=== PATIENT | male | born 1990 | race American Indian/Alaskan Native ===

== ENCOUNTER 2016-11-26 14:14 | Emergency (ER) | payer MEDICAID, OTHER ==
[2016-11-26 14:28] VITALS: BP 103/84
[2016-11-26] MEDS ORDERED: Sodium Chloride 0.9% 10 ML Syringe FLUSH PRN (14:32)
[2016-11-26] MEDS ORDERED: Sodium Chloride 0.9% 1,000 ML IV ONE (14:50)
--- NOTE | 2016-11-26 15:05 | EDM.PDOC ---
ED HPI GENERAL MEDICAL PROBLEM - General Chief Complaint: Respiratory Problem Stated Complaint: SEVERE ABD PAINS, SOB, [id number] Time Seen by Provider: 11/26/16 14:55 Source of Information: Reports: Patient History Limitations: Reports: No Limitations - History of Present Illness INITIAL COMMENTS - FREE TEXT/NARRATIVE: This 26 yo male patient reports to the ED with a 1 week history of intermittent upper abdominal pain that has gotten worse over the past 2 days. The patient reports he has been taking some pain medications. Up to 1 week ago, the patient admits to taking pain medications every other day, but his last dose was about 4 days ago. The patient reports he does not know what he was taking, but he was getting them from his girlfriend. The patient has not been seen or attempted to be seen in the clinic for his current symptoms. Onset Date: 11/19/16 Duration: Getting Worse, Intermittent Location: Reports: Abdomen (upper abdomen) Quality: Reports: Ache, Sharp Severity: Moderate Improves with: Reports: Medication (pain medication (given to patient from his girlfriend)) Worsens with: Reports: None Associated Symptoms: Reports: Other Treatments [employer]: Reports: Other Medication(s) Left Upper Abdomen Pain Score (Numeric/FACES): 10 - Related Data Allergies Allergy/AdvReac Type Severity Reaction Status Date / Time No Known Allergies Allergy Verified 11/26/16 14:28 Home Meds: Home Meds . [No Known Home Meds] 11/26/16 [History] Past Medical History - Past Health History Medical/Surgical History: Denies Medical/Surgical History Social & Family History - Family History Family Medical History: Unobtainable ED ROS GENERAL - Review of Systems Review Of Systems: ROS reveals no pertinent complaints other than HPI. ED EXAM, GENERAL - Physical Exam Exam: See Below Exam Limited By: No Limitations General Appearance: Alert, WD/WN, Moderate Distress, Thin Eye Exam: Bilateral Eye: EOMI, Normal Inspection, PERRL Ears: Normal External Exam, Normal Canal, Hearing Grossly Normal, Normal TMs Nose: Normal Inspection, Normal Mucosa, No Blood Throat/Mouth: Normal Inspection, Normal Lips, Normal Teeth, Normal Gums, Normal Oropharynx, Normal Voice, No Airway Compromise Head: Atraumatic, Normocephalic Neck: Normal Inspection, Supple, Non-Tender, Full Range of Motion Respiratory/Chest: No Respiratory Distress, Lungs Clear, Normal Breath Sounds, No Accessory Muscle Use, Chest Non-Tender Cardiovascular: Normal Peripheral Pulses, Regular Rate, Rhythm, No Edema, No Gallop, No JVD, No Murmur, No Rub GI/Abdominal: Normal Bowel Sounds, Soft, No Organomegaly, No Distention, No Abnormal Bruit, No Mass, Pelvis Stable, Tender (epigastric) (Male) Exam: Deferred Rectal (Males) Exam: Deferred Back Exam: Normal Inspection, Full Range of Motion, NT Extremities: Normal Inspection, Normal Range of Motion, Non-Tender, Normal Capillary Refill, No Pedal Edema Neurological: Alert, Oriented, CN II-XII Intact, Normal Cognition, Normal Gait, Normal Reflexes, No Motor/Sensory Deficits Psychiatric: Anxious Skin Exam: Warm, Dry, Intact, Normal Color, No Rash Lymphatic: No Adenopathy Course - Vital Signs Last Recorded V/S: Last Vital Signs Temp 36.2 C 11/26/16 14:21 Pulse 89 11/26/16 14:21 Resp 20 11/26/16 14:21 BP 103/84 11/26/16 14:21 Pulse Ox 100 11/26/16 14:21 - Orders/Labs/Meds Orders: Active Orders 24 hr Category Date Time Status Sodium Chloride 0.9% [Saline Flush] Med 11/26/16 14:32 Active 10 ml FLUSH ASDIRECTED PRN Saline Lock Insert [OM.PC] Routine Oth 11/26/16 14:32 Ordered Medication Orders Sodium Chloride (Saline Flush) 10 ml FLUSH ASDIRECTED PRN PRN Reason: Keep Vein Open Last Admin: 11/26/16 14:56 Dose: 10 ml Labs: Laboratory Tests 11/26/16 11/26/16 11/26/16 Range/Units 14:52 14:52 14:52 WBC 8.9 (5.0-10.0) 10^3/uL RBC 5.25 (4.6-6.2) 10^6/uL Hgb 15.4 (14.0-18.0) g/dL Hct 45.6 (40.0-54.0) % MCV 86.9 (80-100) fL MCH 29.3 (27.0-34.0) pg MCHC 33.8 (33.0-35.0) g/dL Plt Count 340 (150-450) 10^3/uL Neut % (Auto) 57.3 (42.2-75.2) % Lymph % (Auto) 31.7 (20.5-50.1) % Barber % (Auto) 9.1 H (2-8) % Eos % (Auto) 1.6 (1.0-3.0) % Baso % (Auto) 0.3 (0.0-1.0) % Sodium 142 (135-145) mmol/L Potassium 5.0 (3.6-5.0) mmol/L Chloride 104 (101-111) mmol/L Carbon Dioxide 28.0 (21.0-31.0) mmol/L Anion Gap 15.0 BUN 16 (7-18) mg/dL Creatinine 0.9 (0.6-1.3) mg/dL Est Cr Clr Drug Dosing 127.30 mL/min Estimated GFR (MDRD) > 60 BUN/Creatinine Ratio 17.77 Glucose 85 (74-105) mg/dL Calcium 9.9 (8.4-10.2) mg/dl Magnesium 2.2 (1.8-2.5) mg/dL Total Bilirubin 1.0 (0.2-1.0) mg/dL AST 21 (10-42) IU/L ALT 23 (10-60) IU/L Alkaline Phosphatase 71 (42-121) IU/L Total Protein 7.4 (6.7-8.2) g/dl Albumin 4.5 (3.2-5.5) g/dl Globulin 2.9 Albumin/Globulin Ratio 1.55 Amylase 41 (28-100) U/L Lipase 23 (22-51) U/L Urine Color (YELLOW) Urine Appearance (CLEAR) Urine pH (5.0-9.0) Ur Specific Normal (1.005-1.030) Urine Protein (NEGATIVE) Urine Glucose (UA) (NEGATIVE) Urine Ketones (NEGATIVE) Urine Occult Blood (NEGATIVE) Urine Nitrite (NEGATIVE) Urine Bilirubin (NEGATIVE) Urine Urobilinogen (0.2-1.0) mg/dL Ur Leukocyte Esterase (NEGATIVE) Urine RBC /HPF Urine WBC (0-5/HPF) /HPF Ur Epithelial Cells /HPF Amorphous Sediment (0/HPF) /HPF Urine Bacteria (0-FEW/HPF) /HPF Urine Mucus /LPF Urine Opiates Screen (NEGATIVE) Ur Oxycodone Screen (NEGATIVE) Urine Methadone Screen (NEGATIVE) Ur Barbiturates Screen (NEGATIVE) U Tricyclic Antidepress (NEGATIVE) Ur Phencyclidine Scrn (NEGATIVE) Ur Amphetamine Screen (NEGATIVE) U Methamphetamines Scrn (NEGATIVE) Urine MDMA Screen (NEGATIVE) U Benzodiazepines Scrn (NEGATIVE) Urine Cocaine Screen (NEGATIVE) U Marijuana (THC) Screen (NEGATIVE) Ethyl Alcohol < 5 mg/dL 11/26/16 11/26/16 Range/Units 15:35 15:35 WBC (5.0-10.0) 10^3/uL RBC (4.6-6.2) 10^6/uL Hgb (14.0-18.0) g/dL Hct (40.0-54.0) % MCV (80-100) fL MCH (27.0-34.0) pg MCHC (33.0-35.0) g/dL Plt Count (150-450) 10^3/uL Neut % (Auto) (42.2-75.2) % Lymph % (Auto) (20.5-50.1) % Barber % (Auto) (2-8) % Eos % (Auto) (1.0-3.0) % Baso % (Auto) (0.0-1.0) % Sodium (135-145) mmol/L Potassium (3.6-5.0) mmol/L Chloride (101-111) mmol/L Carbon Dioxide (21.0-31.0) mmol/L Anion Gap BUN (7-18) mg/dL Creatinine (0.6-1.3) mg/dL Est Cr Clr Drug Dosing mL/min Estimated GFR (MDRD) BUN/Creatinine Ratio Glucose (74-105) mg/dL Calcium (8.4-10.2) mg/dl Magnesium (1.8-2.5) mg/dL Total Bilirubin (0.2-1.0) mg/dL AST (10-42) IU/L ALT (10-60) IU/L Alkaline Phosphatase (42-121) IU/L Total Protein (6.7-8.2) g/dl Albumin (3.2-5.5) g/dl Globulin Albumin/Globulin Ratio Amylase (28-100) U/L Lipase (22-51) U/L Urine Color Yellow (YELLOW) Urine Appearance Turbid (CLEAR) Urine pH 7.0 (5.0-9.0) Ur Specific Normal 1.020 (1.005-1.030) Urine Protein Trace H (NEGATIVE) Urine Glucose (UA) Negative (NEGATIVE) Urine Ketones Trace H (NEGATIVE) Urine Occult Blood Negative (NEGATIVE) Urine Nitrite Negative (NEGATIVE) Urine Bilirubin Small H (NEGATIVE) Urine Urobilinogen 4.0 H (0.2-1.0) mg/dL Ur Leukocyte Esterase Negative (NEGATIVE) Urine RBC 0-5 /HPF Urine WBC 0-5 (0-5/HPF) /HPF Ur Epithelial Cells Few /HPF Amorphous Sediment Many (0/HPF) /HPF Urine Bacteria Moderate H (0-FEW/HPF) /HPF Urine Mucus Few H /LPF Urine Opiates Screen Negative (NEGATIVE) Ur Oxycodone Screen Positive H (NEGATIVE) Urine Methadone Screen Negative (NEGATIVE) Ur Barbiturates Screen Negative (NEGATIVE) U Tricyclic Antidepress Negative (NEGATIVE) Ur Phencyclidine Scrn Negative (NEGATIVE) Ur Amphetamine Screen Positive H (NEGATIVE) U Methamphetamines Scrn Positive H (NEGATIVE) Urine MDMA Screen Negative (NEGATIVE) U Benzodiazepines Scrn Negative (NEGATIVE) Urine Cocaine Screen Negative (NEGATIVE) U Marijuana (THC) Screen Positive H (NEGATIVE) Ethyl Alcohol mg/dL Meds: Medications Generic Name Dose Route Start Last Admin Trade Name Freq PRN Reason Stop Dose Admin Sodium Chloride 10 ml 11/26/16 14:32 11/26/16 14:56 Saline Flush FLUSH 10 ml ASDIRECTED PRN Administration Keep Vein Open Discontinued Medications Generic Name Dose Route Start Last Admin Trade Name Freq PRN Reason Stop Dose Admin Al Hydroxide/Mg Hydroxide 30 ml 11/26/16 15:55 Gi Cocktail PO 11/26/16 15:56 ONETIME ONE Sodium Chloride 1,000 mls @ 999 mls/hr 11/26/16 14:50 11/26/16 14:54 Normal Saline IV 11/26/16 15:50 999 mls/hr .BOLUS ONE Administration Pantoprazole Sodium 80 mg 11/26/16 15:55 Protonix Iv IVPUSH 11/26/16 15:56 .BOLUS ONE Departure - Departure Time of Disposition: 15:57 Disposition: Home, Self-Care 01 Condition: Fair Clinical Impression: Methamphetamine abuse, PUD (peptic ulcer disease) - Discharge Information Instructions: Peptic Ulcer, [id number], Stimulant Use Disorder- Methamphetamines, Finding Treatment for Addiction Forms: ED Department Discharge Care Plan Goals: The patient was advised of the examination and lab results during the visit. The patient was given IV fluids, IV Protonix and a GI cocktail while in the ED. The patient was discharged with a script for Omeprazole (20 mg) #20 to take 1 by mouth 2 times per day 30 minutes prior to eating. The patient should avoid methamphetamine use and avoid taking prescription medication not prescribed to him. If the patient has any additional symptoms or further concerns, the patient should follow-up with his primary care facility or return to the emergency department. - My Orders Last 24 Hours: My Active Orders 11/26/16 14:32 Sodium Chloride 0.9% [Saline Flush] 10 ml FLUSH ASDIRECTED PRN Saline Lock Insert [OM.PC] Routine - Assessment/Plan Last 24 Hours: My Active Orders 11/26/16 14:32 Sodium Chloride 0.9% [Saline Flush] 10 ml FLUSH ASDIRECTED PRN Saline Lock Insert [OM.PC] Routine
[2016-11-26 15:19] LABS: CHLORIDE,CL 104 mmol/L (101-111); SODIUM,NA 142 mmol/L (135-145)
[2016-11-26] MEDS ORDERED: GI Cocktail Oral Solution 30 ML PO ONE (15:55)
[2016-11-26] MEDS ORDERED: Pantoprazole 40 MG Vial IVPUSH ONE (15:55)
== END 2016-11-26 16:44 | disposition home or self-care (01) ==
LOC: DL.ED 14:14
DX: K27.9 Peptic ulcer, site unspecified, unspecified as acute or chronic, without hemorrhage or perforation (principal); F15.10 Other stimulant abuse, uncomplicated
CPT/HCPCS: 36415; 80053; 80305; 81001; 82150; 83690; 83735; 85025; 96361; 96374; 99284; A9270; C9113; G0480; J7030; J7050

== ENCOUNTER 2019-09-24 13:21 | Inpatient (IN) | payer MEDICAID, OTHER ==
[~2019-09-24 13:21] MED LIST: LORazepam 2 MG/ML SDV IVPUSH ONE
--- NOTE | 2019-09-24 13:40 | EDM.PDOC ---
ED HPI GENERAL MEDICAL PROBLEM - General Chief Complaint: Drug or Alcohol Abuse Stated Complaint: AMBULANCE Time Seen by Provider: 09/24/19 13:38 Source of Information: Reports: Patient, EMS, EMS Notes Reviewed, RN, RN Notes Reviewed History Limitations: Reports: No Limitations - History of Present Illness INITIAL COMMENTS - FREE TEXT/NARRATIVE: Patient presents to ER per [place] ambulance service with complaint of seizure. Patient states he has had seizures in the past, and did have a concussion in the past. Patient has dried blood around his mouth, and evidence of biting of the tongue. Patient denies any drug use to provider, admits to drinking alcohol frequently. Patient states he does not drink daily but drinks "enough" in a week. Patient states last drink was last evening. Patient denies any health problems. States he does want a cut back on his drinking significantly for his family. Onset: Today, Sudden - Related Data Allergies Allergy/AdvReac Type Severity Reaction Status Date / Time No Known Allergies Allergy Verified 09/24/19 13:30 Home Meds: Home Meds . [No Known Home Meds] 11/26/16 [History] CIWAA - CIWAA CIWAA Nausea And Vomitin - No Nausea and No Vomiting CIWAA Tremor: 2 CIWAA Paroxysmal Sweats: 1 - Barely Perceptible Sweating, Palms Moist CIWAA Anxiety: 4 - Moderately Anxious, or Guarded, so Anxiety is Inferred CIWAA Agitation: 1 -Somewhat More than Normal Activity CIWAA Tactile Disturbances: 1 - Very Mild Itching, Pins and [place], Burning or Numbness CIWAA Auditory Disturbances: 0 - Not Present CIWAA Visual Disturbances: 0 - Not Present CIWAA Headache, Fullness in Head: 1 - Very Mild CIWAA Orientation And Clouding Of Sensorium: 1 - Cannot do Serial Additions or is Uncertain About Date CIWAA Scale Score: 11 Past Medical History - Past Health History Medical/Surgical History: Denies Medical/Surgical History Psychiatric History: Reports: Addiction, Anxiety Social & Family History - Family History Family Medical History: Unobtainable - Tobacco Use Smoking Status *Q: Current Some Day Smoker Years of Tobacco use: 2 Packs/Tins Daily: 0.5 - Caffeine Use Caffeine Use: Reports: Soda - Alcohol Use Days Per Week of Alcohol Use: 5 Number of Drinks Per Day: 5 Total Drinks Per Week: 25 - Recreational Drug Use Recreational Drug Use: Yes Drug Use in Last 12 Months: Yes Recreational Drug Type: Reports: Oxycodone Recreational Drug Use Frequency: Binges ED ROS GENERAL - Review of Systems Review Of Systems: Comprehensive ROS is negative, except as noted in HPI. - Physical Exam Exam: See Below General Appearance: Alert, WD/WN, Anxious, Mild Distress Eye Exam: Bilateral Eye: EOMI, Normal Inspection Ears: Normal External Exam, Hearing Grossly Normal Nose: Normal Inspection Throat/Mouth: Normal Voice, No Airway Compromise, Evidence of Tongue Biting, Other (dried blood around the mouth) Head Exam: Atraumatic, Normocephalic Neck: Normal Inspection, Supple, Non-Tender, Full Range of Motion Respiratory/Chest: No Respiratory Distress, Lungs Clear, Normal Breath Sounds, No Accessory Muscle Use, Chest Non-Tender Cardiovascular: Normal Peripheral Pulses, Regular Rate, Rhythm, No Edema, No Gallop, No JVD, No Murmur, No Rub GI/Abdominal: Normal Bowel Sounds, Soft, Non-Tender, No Organomegaly, No Distention, No Abnormal Bruit, No Mass, Pelvis Stable (Male) Exam: Deferred Rectal (Males) Exam: Deferred Neuro Exam (Abbreviated): Alert, Oriented, CN II-XII Intact, Normal Cognition, Normal Gait, No Motor/Sensory Deficits Back Exam: Normal Inspection, Full Range of Motion Extremities: Normal Inspection, Normal Range of Motion, Non-Tender, No Pedal Edema, Normal Capillary Refill Psychiatric: Normal Affect, Normal Mood, Anxious Skin Exam: Warm, Dry, Intact, Normal Color, No Rash Course - Vital Signs Last Recorded V/S: Last Vital Signs Temp 97.6 F 09/24/19 13:28 Pulse 115 H 09/24/19 13:28 Resp 18 09/24/19 13:28 BP 123/82 09/24/19 13:28 Pulse Ox 97 09/24/19 13:28 - Orders/Labs/Meds Orders: Active Orders 24 hr Category Date Time Status Admission Diagnosis [ADT] Stat ADT 09/24/19 15:56 Ordered Admission Status [Patient Status] [ADT] Routine ADT 09/24/19 15:56 Ordered Patient Status [ADT] Routine ADT 09/24/19 15:56 Ordered Cardiac Monitoring [RC] CONTINUOUS Care 09/24/19 15:57 Ordered Intake and Output [RC] QSHIFT Care 09/24/19 15:57 Ordered Oxygen Therapy [RC] PRN Care 09/24/19 15:56 Ordered Up With Assistance [RC] ASDIRECTED Care 09/24/19 15:56 Ordered VTE/DVT Education [RC] PER UNIT ROUTINE Care 09/24/19 15:56 Ordered Vital Signs [RC] Q4H Care 09/24/19 15:56 Ordered Regular Diet [DIET] Diet 09/24/19 Dinner Ordered CK W CKMB [CHEM] AM Lab 09/25/19 05:11 Ordered COMPREHENSIVE METABOLIC PN,CMP [CHEM] AM Lab 09/25/19 05:11 Ordered MAGNESIUM [CHEM] AM Lab 09/25/19 05:11 Ordered Labs: Laboratory Tests 09/24/19 09/24/19 09/24/19 Range/Units 13:22 13:22 13:23 WBC 6.2 (5.0-10.0) 10^3/uL RBC 5.33 (4.6-6.2) 10^6/uL Hgb 16.4 (14.0-18.0) g/dL Hct 48.1 (40.0-54.0) % MCV 90.2 D (80-100) fL MCH 30.8 (27.0-34.0) pg MCHC 34.1 (33.0-35.0) g/dL Plt Count 290 (150-450) 10^3/uL Neut % (Auto) 51.3 (42.2-75.2) % Lymph % (Auto) 34.5 (20.5-50.1) % [place] % (Auto) 12.3 H (2-8) % Eos % (Auto) 1.4 (1.0-3.0) % Baso % (Auto) 0.5 (0.0-1.0) % Sodium (136-145) mmol/L Potassium (3.5-5.1) mmol/L Chloride (98-107) mmol/L Carbon Dioxide (21-32) mmol/L Anion Gap (7-13) mEq/L BUN (7-18) mg/dL Creatinine (0.70-1.30) mg/dL Est Cr Clr Drug Dosing Estimated GFR (MDRD) BUN/Creatinine Ratio (No establ ref range) Glucose (74-99) mg/dL Calcium (8.5-10.1) mg/dL Total Bilirubin (0.2-1.0) mg/dL AST (15-37) U/L ALT (16-63) U/L Alkaline Phosphatase (46-116) U/L Total Protein (6.4-8.2) g/dL Albumin (3.4-5.0) g/dL Globulin Albumin/Globulin Ratio Urine Color Dark yellow (YELLOW) Urine Appearance Slightly cloudy (CLEAR) Urine pH 6.0 (5.0-9.0) Ur Specific [place] >= 1.030 (1.005-1.030) Urine Protein 30 H (NEGATIVE) Urine Glucose (UA) Negative (NEGATIVE) Urine Ketones Negative (NEGATIVE) Urine Occult Blood Trace-intact H (NEGATIVE) Urine Nitrite Negative (NEGATIVE) Urine Bilirubin Negative (NEGATIVE) Urine Urobilinogen 0.2 (0.2-1.0) mg/dL Ur Leukocyte Esterase Negative (NEGATIVE) Urine RBC 0-5 /HPF Urine WBC Not seen (0-5/HPF) /HPF Ur Epithelial Cells Few (NOT SEEN) /HPF Amorphous Sediment Moderate (NOT SEEN) /HPF Urine Bacteria Rare (0-FEW/HPF) /HPF Fine Granular Casts Moderate H (NOT SEEN) /LPF Urine Mucus Many H (NOT SEEN) /LPF Urine Opiates Screen Negative (NEGATIVE) Ur Oxycodone Screen Negative (NEGATIVE) Urine Methadone Screen Negative (NEGATIVE) Ur Barbiturates Screen Negative (NEGATIVE) U Tricyclic Antidepress Negative (NEGATIVE) Ur Phencyclidine Scrn Negative (NEGATIVE) Ur Amphetamine Screen Positive H (NEGATIVE) U Methamphetamines Scrn Positive H (NEGATIVE) Urine MDMA Screen Negative (NEGATIVE) U Benzodiazepines Scrn Negative (NEGATIVE) Urine Cocaine Screen Negative (NEGATIVE) U Marijuana (THC) Screen Positive H (NEGATIVE) Ethyl Alcohol (0) mg/dL 09/24/19 Range/Units 13:23 WBC (5.0-10.0) 10^3/uL RBC (4.6-6.2) 10^6/uL Hgb (14.0-18.0) g/dL Hct (40.0-54.0) % MCV (80-100) fL MCH (27.0-34.0) pg MCHC (33.0-35.0) g/dL Plt Count (150-450) 10^3/uL Neut % (Auto) (42.2-75.2) % Lymph % (Auto) (20.5-50.1) % [place] % (Auto) (2-8) % Eos % (Auto) (1.0-3.0) % Baso % (Auto) (0.0-1.0) % Sodium 141 (136-145) mmol/L Potassium 4.0 (3.5-5.1) mmol/L Chloride 102 (98-107) mmol/L Carbon Dioxide 21 (21-32) mmol/L Anion Gap 22.0 H (7-13) mEq/L BUN 21 H (7-18) mg/dL Creatinine 1.24 (0.70-1.30) mg/dL Est Cr Clr Drug Dosing TNP Estimated GFR (MDRD) > 60 BUN/Creatinine Ratio 16.9 (No establ ref range) Glucose 79 (74-99) mg/dL Calcium 8.6 (8.5-10.1) mg/dL Total Bilirubin 2.1 H (0.2-1.0) mg/dL AST 62 H (15-37) U/L ALT 51 (16-63) U/L Alkaline Phosphatase 87 (46-116) U/L Total Protein 7.6 (6.4-8.2) g/dL Albumin 4.3 (3.4-5.0) g/dL Globulin 3.3 Albumin/Globulin Ratio 1.3 Urine Color (YELLOW) Urine Appearance (CLEAR) Urine pH (5.0-9.0) Ur Specific [place] (1.005-1.030) Urine Protein (NEGATIVE) Urine Glucose (UA) (NEGATIVE) Urine Ketones (NEGATIVE) Urine Occult Blood (NEGATIVE) Urine Nitrite (NEGATIVE) Urine Bilirubin (NEGATIVE) Urine Urobilinogen (0.2-1.0) mg/dL Ur Leukocyte Esterase (NEGATIVE) Urine RBC /HPF Urine WBC (0-5/HPF) /HPF Ur Epithelial Cells (NOT SEEN) /HPF Amorphous Sediment (NOT SEEN) /HPF Urine Bacteria (0-FEW/HPF) /HPF Fine Granular Casts (NOT SEEN) /LPF Urine Mucus (NOT SEEN) /LPF Urine Opiates Screen (NEGATIVE) Ur Oxycodone Screen (NEGATIVE) Urine Methadone Screen (NEGATIVE) Ur Barbiturates Screen (NEGATIVE) U Tricyclic Antidepress (NEGATIVE) Ur Phencyclidine Scrn (NEGATIVE) Ur Amphetamine Screen (NEGATIVE) U Methamphetamines Scrn (NEGATIVE) Urine MDMA Screen (NEGATIVE) U Benzodiazepines Scrn (NEGATIVE) Urine Cocaine Screen (NEGATIVE) U Marijuana (THC) Screen (NEGATIVE) Ethyl Alcohol < 3 (0) mg/dL Meds: Medications Discontinued Medications Generic Name Dose Route Start Last Admin Trade Name Freq PRN Reason Stop Dose Admin Multivitamins/Minerals 10 ml/ 1,011.2 mls @ 999 mls/hr 09/24/19 13:56 09/24/19 14:13 Folic Acid 1 mg/ Thiamine HCl IV 09/24/19 14:56 999 mls/hr 100 mg/ Lactated Ringer's ONETIME ONE Administration Lorazepam 1 mg 09/24/19 13:14 09/24/19 13:35 Ativan IVPUSH 09/24/19 13:15 1 mg ONETIME ONE Administration - Radiology Interpretation Free Text/Narrative:: Head CT wo contrast: Sphenoid sinusitis. Emergency unenhanced CT scan head and brain otherwise ne gative. See rad report - Re-Assessments/Exams Free Text/Narrative Re-Assessment/Exam: 09/24/19 16:00 Discussed patient case with Dr. Alarcon who came to the ER to evaluate the patient. He agreed to accept the patient for inpatient admission. Departure - Departure Time of Disposition: 16:01 Disposition: Admitted As Inpatient 65 Condition: Fair Clinical Impression: Alcohol abuse, Drug abuse, Methamphetamine abuse, Seizure - Discharge Information *PRESCRIPTION DRUG MONITORING PROGRAM REVIEWED*: No *COPY OF PRESCRIPTION DRUG MONITORING REPORT IN PATIENT ARIANA: No Forms: ED Department Discharge Sepsis Event Note (ED) - Evaluation Sepsis Screening Result: No Definite Risk - Focused Exam Vital Signs: Vital Signs Temp Pulse Resp BP Pulse Ox 09/24/19 13:28 97.6 F 115 H 18 123/82 97 - My Orders Last 24 Hours: My Active Orders 09/24/19 15:56 Admission Diagnosis [ADT] Stat Admission Status [Patient Status] [ADT] Routine - Assessment/Plan Last 24 Hours: My Active Orders 09/24/19 15:56 Admission Diagnosis [ADT] Stat Admission Status [Patient Status] [ADT] Routine
[2019-09-24 13:48] LABS: CHLORIDE,CL 102 mmol/L (98-107); SODIUM,NA 141 mmol/L (136-145)
[2019-09-24] MEDS ORDERED: MVI, Adult with Vitamin K 10 ML, Folic Acid 1 MG, Thiamine 100 MG in Lactated Ringers 1... IV ONE ×4 (13:56)
--- NOTE | 2019-09-24 14:43 | CT ---
EXAMINATION: Head wo Cont SEX: Male AGE: 29 years CLINICAL HISTORY: 29-year-old male in the emergency department with SEIZURE. No comparison exams immediately available. Scan technique: Volume acquisition of data from the head and brain obtained on emergency basis without IV contrast while patient was lying supine on the Siemens multislice scanner [place], [place]. All data archived in the PACS system for storage, reformatting axial/sagittal/coronal planes and study (bone/brain windows). Interpretation: 1. Fluid-filled sphenoid sinus (on the left) with air-fluid level suggesting acute sinusitis. Symmetric clear pneumatization of the other paranasal and both mastoid sinuses. No foreign bodies. Midline septum. 2. Uniformly thick bony calvarium without sign of skull fracture, underlying brain contusion or epidural/subdural hematoma. 3. No supratentorial or posterior fossa mass lesion. No hydrocephalus. 4. No ischemic infarcts or signs of encephalomalacia. (Mild atrophy) 5. No sign of acute intracerebral/intraventricular/subarachnoid bleed. CONCLUSION: Sphenoid sinusitis. Emergency unenhanced CT scan head and brain otherwise negative.
[2019-09-24] MEDS ORDERED: LORazepam 2 MG/ML SDV IVPUSH PRN ×2 (15:56→16:10)
[2019-09-24] MEDS ORDERED: LORazepam 1 MG Tab PO PRN (16:12)
--- NOTE | 2019-09-24 16:16 | PCM.HP ---
H&P History of Present Illness - General Date of Service: 09/24/19 Admit Problem/Dx: Admission Diagnosis/Problem Admission Diagnosis/Problem Seizure disorder Source of Information: Patient, EMS - History of Present Illness Initial Comments - Free Text/Narative: The patient is a poor historian. He is a 29-year-old man with medical history of anxiety disorder and illicit drug use. The patient is a chronic alcoholic also. He presented to the emergency room via EMS because of seizure. Apparently had a seizure at home and family called an ambulance. Patient is unable to describe the seizure. Was noted to be confused at presentation. Denies having headache or blurring of vision. No focal weakness of any of the extremities at this point - Related Data Allergies/Adverse Reactions: Allergies Allergy/AdvReac Type Severity Reaction Status Date / Time No Known Allergies Allergy Verified 09/24/19 13:30 Home Medications: Home Meds . [No Known Home Meds] 11/26/16 [History] Past Medical History - Past Health History Medical/Surgical History: Denies Medical/Surgical History Psychiatric History: Reports: Addiction, Anxiety Social & Family History - Family History Family Medical History: Unobtainable - Tobacco Use Smoking Status *Q: Current Some Day Smoker Years of Tobacco use: 2 Packs/Tins Daily: 0.5 - Caffeine Use Caffeine Use: Reports: Soda - Alcohol Use Days Per Week of Alcohol Use: 5 Number of Drinks Per Day: 5 Total Drinks Per Week: 25 - Recreational Drug Use Recreational Drug Use: Yes Drug Use in Last 12 Months: Yes Recreational Drug Type: Reports: Oxycodone Recreational Drug Use Frequency: Binges H&P Review of Systems - Review of Systems: Review Of Systems: See Below General: Reports: Malaise, Weakness HEENT: Reports: No Symptoms Pulmonary: Reports: No Symptoms Cardiovascular: Reports: No Symptoms Gastrointestinal: Reports: No Symptoms Musculoskeletal: Reports: No Symptoms Skin: Reports: No Symptoms Neurological: Reports: Seizure Exam - Exam Exam: See Below - Vital Signs Vital Signs: Last Vital Signs Temp 36.4 C 09/24/19 13:28 Pulse 115 H 09/24/19 13:28 Resp 18 09/24/19 13:28 BP 123/82 09/24/19 13:28 Pulse Ox 97 09/24/19 13:28 Weight: 73.527 kg - Exam General: Alert, Oriented, Other (Mild intermittent confusion) Neck: Supple, Trachea Midline, 2 Lungs: Clear to Auscultation, Normal Respiratory Effort Cardiovascular: Regular Rate, Regular Rhythm (Male) Exam: No Hernia, Normal Inspection, Normal Prostate, Circumcised Extremities: Normal Inspection, Normal Range of Motion, Non-Tender, No Pedal Edema, Normal Capillary Refill Skin: Warm, Dry, Intact - Patient Data Lab Results Last 24 hrs: Laboratory Results - last 24 hr 09/24/19 09/24/19 09/24/19 Range/Units 13:22 13:22 13:23 WBC 6.2 (5.0-10.0) 10^3/uL RBC 5.33 (4.6-6.2) 10^6/uL Hgb 16.4 (14.0-18.0) g/dL Hct 48.1 (40.0-54.0) % MCV 90.2 D (80-100) fL MCH 30.8 (27.0-34.0) pg MCHC 34.1 (33.0-35.0) g/dL Plt Count 290 (150-450) 10^3/uL Neut % (Auto) 51.3 (42.2-75.2) % Lymph % (Auto) 34.5 (20.5-50.1) % [place] % (Auto) 12.3 H (2-8) % Eos % (Auto) 1.4 (1.0-3.0) % Baso % (Auto) 0.5 (0.0-1.0) % Sodium (136-145) mmol/L Potassium (3.5-5.1) mmol/L Chloride (98-107) mmol/L Carbon Dioxide (21-32) mmol/L Anion Gap (7-13) mEq/L BUN (7-18) mg/dL Creatinine (0.70-1.30) mg/dL Est Cr Clr Drug Dosing Estimated GFR (MDRD) BUN/Creatinine Ratio (No establ ref range) Glucose (74-99) mg/dL Calcium (8.5-10.1) mg/dL Total Bilirubin (0.2-1.0) mg/dL AST (15-37) U/L ALT (16-63) U/L Alkaline Phosphatase (46-116) U/L Total Protein (6.4-8.2) g/dL Albumin (3.4-5.0) g/dL Globulin Albumin/Globulin Ratio Urine Color Dark yellow (YELLOW) Urine Appearance Slightly cloudy (CLEAR) Urine pH 6.0 (5.0-9.0) Ur Specific [place] >= 1.030 (1.005-1.030) Urine Protein 30 H (NEGATIVE) Urine Glucose (UA) Negative (NEGATIVE) Urine Ketones Negative (NEGATIVE) Urine Occult Blood Trace-intact H (NEGATIVE) Urine Nitrite Negative (NEGATIVE) Urine Bilirubin Negative (NEGATIVE) Urine Urobilinogen 0.2 (0.2-1.0) mg/dL Ur Leukocyte Esterase Negative (NEGATIVE) Urine RBC 0-5 /HPF Urine WBC Not seen (0-5/HPF) /HPF Ur Epithelial Cells Few (NOT SEEN) /HPF Amorphous Sediment Moderate (NOT SEEN) /HPF Urine Bacteria Rare (0-FEW/HPF) /HPF Fine Granular Casts Moderate H (NOT SEEN) /LPF Urine Mucus Many H (NOT SEEN) /LPF Urine Opiates Screen Negative (NEGATIVE) Ur Oxycodone Screen Negative (NEGATIVE) Urine Methadone Screen Negative (NEGATIVE) Ur Barbiturates Screen Negative (NEGATIVE) U Tricyclic Antidepress Negative (NEGATIVE) Ur Phencyclidine Scrn Negative (NEGATIVE) Ur Amphetamine Screen Positive H (NEGATIVE) U Methamphetamines Scrn Positive H (NEGATIVE) Urine MDMA Screen Negative (NEGATIVE) U Benzodiazepines Scrn Negative (NEGATIVE) Urine Cocaine Screen Negative (NEGATIVE) U Marijuana (THC) Screen Positive H (NEGATIVE) Ethyl Alcohol (0) mg/dL 09/23/ Range/Units 13:23 WBC (5.0-10.0) 10^3/uL RBC (4.6-6.2) 10^6/uL Hgb (14.0-18.0) g/dL Hct (40.0-54.0) % MCV (80-100) fL MCH (27.0-34.0) pg MCHC (33.0-35.0) g/dL Plt Count (150-450) 10^3/uL Neut % (Auto) (42.2-75.2) % Lymph % (Auto) (20.5-50.1) % [place] % (Auto) (2-8) % Eos % (Auto) (1.0-3.0) % Baso % (Auto) (0.0-1.0) % Sodium 141 (136-145) mmol/L Potassium 4.0 (3.5-5.1) mmol/L Chloride 102 (98-107) mmol/L Carbon Dioxide 21 (21-32) mmol/L Anion Gap 22.0 H (7-13) mEq/L BUN 21 H (7-18) mg/dL Creatinine 1.24 (0.70-1.30) mg/dL Est Cr Clr Drug Dosing TNP Estimated GFR (MDRD) > 60 BUN/Creatinine Ratio 16.9 (No establ ref range) Glucose 79 (74-99) mg/dL Calcium 8.6 (8.5-10.1) mg/dL Total Bilirubin 2.1 H (0.2-1.0) mg/dL AST 62 H (15-37) U/L ALT 51 (16-63) U/L Alkaline Phosphatase 87 (46-116) U/L Total Protein 7.6 (6.4-8.2) g/dL Albumin 4.3 (3.4-5.0) g/dL Globulin 3.3 Albumin/Globulin Ratio 1.3 Urine Color (YELLOW) Urine Appearance (CLEAR) Urine pH (5.0-9.0) Ur Specific [place] (1.005-1.030) Urine Protein (NEGATIVE) Urine Glucose (UA) (NEGATIVE) Urine Ketones (NEGATIVE) Urine Occult Blood (NEGATIVE) Urine Nitrite (NEGATIVE) Urine Bilirubin (NEGATIVE) Urine Urobilinogen (0.2-1.0) mg/dL Ur Leukocyte Esterase (NEGATIVE) Urine RBC /HPF Urine WBC (0-5/HPF) /HPF Ur Epithelial Cells (NOT SEEN) /HPF Amorphous Sediment (NOT SEEN) /HPF Urine Bacteria (0-FEW/HPF) /HPF Fine Granular Casts (NOT SEEN) /LPF Urine Mucus (NOT SEEN) /LPF Urine Opiates Screen (NEGATIVE) Ur Oxycodone Screen (NEGATIVE) Urine Methadone Screen (NEGATIVE) Ur Barbiturates Screen (NEGATIVE) U Tricyclic Antidepress (NEGATIVE) Ur Phencyclidine Scrn (NEGATIVE) Ur Amphetamine Screen (NEGATIVE) U Methamphetamines Scrn (NEGATIVE) Urine MDMA Screen (NEGATIVE) U Benzodiazepines Scrn (NEGATIVE) Urine Cocaine Screen (NEGATIVE) U Marijuana (THC) Screen (NEGATIVE) Ethyl Alcohol < 3 (0) mg/dL Result Diagrams: 09/24/19 13:23 09/24/19 13:23 Problem List Initiated/Reviewed/Updated: Yes Orders Last 24hrs: Active Orders 24 hr Category Date Time Status Admission Diagnosis [ADT] Stat ADT 09/24/19 15:56 Ordered Admission Status [Patient Status] [ADT] Routine ADT 09/24/19 15:56 Active Patient Status [ADT] Routine ADT 09/24/19 15:56 Active Cardiac Monitoring [RC] CONTINUOUS Care 09/24/19 15:57 Active Intake and Output [RC] QSHIFT Care 09/24/19 15:57 Active Oxygen Therapy [RC] PRN Care 09/24/19 15:56 Active Up With Assistance [RC] ASDIRECTED Care 09/24/19 15:56 Active VTE/DVT Education [RC] PER UNIT ROUTINE Care 09/24/19 15:56 Active Vital Signs [RC] Q4H Care 09/24/19 15:56 Active Regular Diet [DIET] Diet 09/24/19 Dinner Active CK W CKMB [CHEM] AM Lab 09/25/19 05:11 Ordered COMPREHENSIVE METABOLIC PN,CMP [CHEM] AM Lab 09/25/19 05:11 Ordered MAGNESIUM [CHEM] AM Lab 09/25/19 05:11 Ordered PHOSPHORUS [CHEM] AM Lab 09/25/19 05:11 Ordered Acetaminophen [Tylenol] Med 09/24/19 15:56 Ordered 650 mg PO Q4H PRN Heparin Sodium Med 09/24/19 22:00 Ordered 5,000 units SUBCUT Q8HR LORazepam [Ativan] Med 09/24/19 15:56 Ordered 2 mg IVPUSH ONETIME PRN LORazepam [Ativan] Med 09/24/19 16:10 Ordered See Protocol IVPUSH TITRATE PRN LORazepam [Ativan] Med 09/24/19 16:12 Ordered See Protocol PO TITRATE PRN Nicotine [Habitrol] Med 09/25/19 09:00 Ordered 21 mg TRDERM DAILY Sodium Chloride 0.9% [Normal Saline] 1,000 ml Med 09/24/19 16:00 Ordered IV ASDIRECTED Resuscitation Status Routine Resus Stat 09/24/19 15:56 Ordered Medication Orders Acetaminophen (Tylenol) 650 mg PO Q4H PRN PRN Reason: Pain (Mild 1-3)/fever Heparin Sodium (Porcine) (Heparin Sodium) 5,000 units SUBCUT Q8HR [facility] Sodium Chloride (Normal Saline) 1,000 mls @ 125 mls/hr IV ASDIRECTED [facility] Lorazepam (Ativan) 2 mg IVPUSH ONETIME PRN PRN Reason: seizure Lorazepam (Ativan) 0 mg IVPUSH TITRATE PRN; Protocol PRN Reason: Withdrawal Symptoms Lorazepam (Ativan) 0 mg PO TITRATE PRN; Protocol PRN Reason: Withdrawal Symptoms Nicotine (Habitrol) 21 mg TRDERM DAILY [facility] Assessment/Plan Comment:: #. Seizure Patient apparently had a seizure at home Has no prior history of seizures. #. Anxiety disorder Not on any medication #. Substance use disorder Patient uses methamphetamine Urine toxicology screen is also positive for marijuana #. Liver disease Total bilirubin is elevated up to 2.1 Plan: Admit patient to medical floor Intravenous lorazepam for seizures Seizure precautions Alcohol withdrawal precautions Start patient on lorazepam protocol for alcohol withdrawal Send sample for serum CPK
[2019-09-24] MEDS: Sodium Chloride 0.9% 1,000 ML IV SCH (17:44)
[2019-09-24] MEDS: Heparin Sodium 5,000 Units/ML Vial SUBCUT SCH (21:55)
[2019-09-24] MEDS: Acetaminophen 325 MG Tab PO PRN (21:59)
[2019-09-25] MEDS: Sodium Chloride 0.9% 1,000 ML IV SCH ×3 (02:15→17:59)
[2019-09-25] MEDS: Heparin Sodium 5,000 Units/ML Vial SUBCUT SCH ×3 (05:59→21:30)
[2019-09-25 06:40] LABS: ANION GAP 11.7 mEq/L (7-13); CHLORIDE,CL 108 mmol/L (98-107); SODIUM,NA 143 mmol/L (136-145)
--- NOTE | 2019-09-25 09:14 | PCM.PN ---
- General Info Date of Service: 09/25/19 Subjective Update: Admitted with alcohol-related seizure No seizure overnight No new complaints today. No nausea and no vomiting. - Review of Systems General: Reports: Malaise HEENT: Reports: No Symptoms Pulmonary: Reports: No Symptoms Cardiovascular: Reports: No Symptoms Gastrointestinal: Reports: No Symptoms Musculoskeletal: Reports: No Symptoms - Patient Data Vitals - Most Recent: Last Vital Signs Temp 36.6 C 09/25/19 07:00 Pulse 75 09/25/19 07:00 Resp 18 09/25/19 07:00 BP 104/66 09/25/19 07:00 Pulse Ox 94 L 09/25/19 07:00 Weight - Most Recent: 73.527 kg I&O - Last 24 Hours: Intake & Output 09/24/19 09/25/19 09/25/19 22:59 06:59 14:59 Intake Total 200 2086 Output Total 625 Balance 200 1461 Lab Results Last 24 Hours: Laboratory Results - last 24 hr 09/24/19 09/24/19 09/24/19 Range/Units 13:22 13:22 13:23 WBC 6.2 (5.0-10.0) 10^3/uL RBC 5.33 (4.6-6.2) 10^6/uL Hgb 16.4 (14.0-18.0) g/dL Hct 48.1 (40.0-54.0) % MCV 90.2 D (80-100) fL MCH 30.8 (27.0-34.0) pg MCHC 34.1 (33.0-35.0) g/dL Plt Count 290 (150-450) 10^3/uL Neut % (Auto) 51.3 (42.2-75.2) % Lymph % (Auto) 34.5 (20.5-50.1) % [place] % (Auto) 12.3 H (2-8) % Eos % (Auto) 1.4 (1.0-3.0) % Baso % (Auto) 0.5 (0.0-1.0) % Sodium (136-145) mmol/L Potassium (3.5-5.1) mmol/L Chloride (98-107) mmol/L Carbon Dioxide (21-32) mmol/L Anion Gap (7-13) mEq/L BUN (7-18) mg/dL Creatinine (0.70-1.30) mg/dL Est Cr Clr Drug Dosing Estimated GFR (MDRD) BUN/Creatinine Ratio (No establ ref range) Glucose (74-99) mg/dL Calcium (8.5-10.1) mg/dL Phosphorus (2.6-4.7) mg/dL Magnesium (1.8-2.4) mg/dL Total Bilirubin (0.2-1.0) mg/dL AST (15-37) U/L ALT (16-63) U/L Alkaline Phosphatase (46-116) U/L Creatine Kinase (39-308) U/L Creatine Kinase Index (0-2.4) % CK-MB (CK-2) (0.0-3.6) ng/mL Total Protein (6.4-8.2) g/dL Albumin (3.4-5.0) g/dL Globulin Albumin/Globulin Ratio Urine Color Dark yellow (YELLOW) Urine Appearance Slightly cloudy (CLEAR) Urine pH 6.0 (5.0-9.0) Ur Specific [place] >= 1.030 (1.005-1.030) Urine Protein 30 H (NEGATIVE) Urine Glucose (UA) Negative (NEGATIVE) Urine Ketones Negative (NEGATIVE) Urine Occult Blood Trace-intact H (NEGATIVE) Urine Nitrite Negative (NEGATIVE) Urine Bilirubin Negative (NEGATIVE) Urine Urobilinogen 0.2 (0.2-1.0) mg/dL Ur Leukocyte Esterase Negative (NEGATIVE) Urine RBC 0-5 /HPF Urine WBC Not seen (0-5/HPF) /HPF Ur Epithelial Cells Few (NOT SEEN) /HPF Amorphous Sediment Moderate (NOT SEEN) /HPF Urine Bacteria Rare (0-FEW/HPF) /HPF Fine Granular Casts Moderate H (NOT SEEN) /LPF Urine Mucus Many H (NOT SEEN) /LPF Urine Opiates Screen Negative (NEGATIVE) Ur Oxycodone Screen Negative (NEGATIVE) Urine Methadone Screen Negative (NEGATIVE) Ur Barbiturates Screen Negative (NEGATIVE) U Tricyclic Antidepress Negative (NEGATIVE) Ur Phencyclidine Scrn Negative (NEGATIVE) Ur Amphetamine Screen Positive H (NEGATIVE) U Methamphetamines Scrn Positive H (NEGATIVE) Urine MDMA Screen Negative (NEGATIVE) U Benzodiazepines Scrn Negative (NEGATIVE) Urine Cocaine Screen Negative (NEGATIVE) U Marijuana (THC) Screen Positive H (NEGATIVE) Ethyl Alcohol (0) mg/dL 09/24/19 09/25/19 09/25/19 Range/Units 13:23 05:53 05:53 WBC (5.0-10.0) 10^3/uL RBC (4.6-6.2) 10^6/uL Hgb (14.0-18.0) g/dL Hct (40.0-54.0) % MCV (80-100) fL MCH (27.0-34.0) pg MCHC (33.0-35.0) g/dL Plt Count (150-450) 10^3/uL Neut % (Auto) (42.2-75.2) % Lymph % (Auto) (20.5-50.1) % [place] % (Auto) (2-8) % Eos % (Auto) (1.0-3.0) % Baso % (Auto) (0.0-1.0) % Sodium 141 143 (136-145) mmol/L Potassium 4.0 3.7 (3.5-5.1) mmol/L Chloride 102 108 H (98-107) mmol/L Carbon Dioxide 21 27 (21-32) mmol/L Anion Gap 22.0 H 11.7 (7-13) mEq/L BUN 21 H 18 (7-18) mg/dL Creatinine 1.24 0.93 (0.70-1.30) mg/dL Est Cr Clr Drug Dosing TNP 119.92 Estimated GFR (MDRD) > 60 > 60 BUN/Creatinine Ratio 16.9 19.4 (No establ ref range) Glucose 79 74 (74-99) mg/dL Calcium 8.6 7.7 L (8.5-10.1) mg/dL Phosphorus 4.0 (2.6-4.7) mg/dL Magnesium 2.1 (1.8-2.4) mg/dL Total Bilirubin 2.1 H 3.1 H (0.2-1.0) mg/dL AST 62 H 33 (15-37) U/L ALT 51 37 (16-63) U/L Alkaline Phosphatase 87 68 (46-116) U/L Creatine Kinase 501 H (39-308) U/L Creatine Kinase Index 0.8 (0-2.4) % CK-MB (CK-2) 4.0 H (0.0-3.6) ng/mL Total Protein 7.6 5.8 L (6.4-8.2) g/dL Albumin 4.3 3.3 L (3.4-5.0) g/dL Globulin 3.3 2.5 Albumin/Globulin Ratio 1.3 1.32 Urine Color (YELLOW) Urine Appearance (CLEAR) Urine pH (5.0-9.0) Ur Specific [place] (1.005-1.030) Urine Protein (NEGATIVE) Urine Glucose (UA) (NEGATIVE) Urine Ketones (NEGATIVE) Urine Occult Blood (NEGATIVE) Urine Nitrite (NEGATIVE) Urine Bilirubin (NEGATIVE) Urine Urobilinogen (0.2-1.0) mg/dL Ur Leukocyte Esterase (NEGATIVE) Urine RBC /HPF Urine WBC (0-5/HPF) /HPF Ur Epithelial Cells (NOT SEEN) /HPF Amorphous Sediment (NOT SEEN) /HPF Urine Bacteria (0-FEW/HPF) /HPF Fine Granular Casts (NOT SEEN) /LPF Urine Mucus (NOT SEEN) /LPF Urine Opiates Screen (NEGATIVE) Ur Oxycodone Screen (NEGATIVE) Urine Methadone Screen (NEGATIVE) Ur Barbiturates Screen (NEGATIVE) U Tricyclic Antidepress (NEGATIVE) Ur Phencyclidine Scrn (NEGATIVE) Ur Amphetamine Screen (NEGATIVE) U Methamphetamines Scrn (NEGATIVE) Urine MDMA Screen (NEGATIVE) U Benzodiazepines Scrn (NEGATIVE) Urine Cocaine Screen (NEGATIVE) U Marijuana (THC) Screen (NEGATIVE) Ethyl Alcohol < 3 (0) mg/dL Med Orders - Current: Current Medications Acetaminophen (Tylenol) 650 mg PO Q4H PRN PRN Reason: Pain (Mild 1-3)/fever Last Admin: 09/24/19 21:59 Dose: 650 mg Documented by: Heparin Sodium (Porcine) (Heparin Sodium) 5,000 units SUBCUT Q8HR [facility] Last Admin: 09/25/19 05:59 Dose: 5,000 units Documented by: Sodium Chloride (Normal Saline) 1,000 mls @ 125 mls/hr IV ASDIRECTED [facility] Last Admin: 09/25/19 02:15 Dose: 125 mls/hr Documented by: Lorazepam (Ativan) 2 mg IVPUSH ONETIME PRN PRN Reason: seizure Lorazepam (Ativan) 0 mg IVPUSH TITRATE PRN; Protocol PRN Reason: Withdrawal Symptoms Lorazepam (Ativan) 0 mg PO TITRATE PRN; Protocol PRN Reason: Withdrawal Symptoms Miscellaneous Information (Check Patch) 1 ea TRDERM BEDTIME [facility] Nicotine (Habitrol) 21 mg TRDERM DAILY [facility] Discontinued Medications Multivitamins/Minerals 10 ml/Folic Acid 1 mg/ Thiamine HCl 100 mg/ Lactated Ringer's 1,011.2 mls @ 999 mls/hr IV ONETIME ONE Stop: 09/24/19 14:56 Last Admin: 09/24/19 14:13 Dose: 999 mls/hr Documented by: Lorazepam (Ativan) 1 mg IVPUSH ONETIME ONE Stop: 09/24/19 13:15 Last Admin: 09/24/19 13:35 Dose: 1 mg Documented by: - Exam General: Alert, Oriented, Cooperative Neck: Supple Lungs: Clear to Auscultation, Normal Respiratory Effort Cardiovascular: Regular Rate, Regular Rhythm GI/Abdominal Exam: Normal Bowel Sounds, Soft, Non-Tender, No Organomegaly, No Distention, No Abnormal Bruit, No Mass, Pelvis Stable Extremities: Normal Inspection, Normal Range of Motion, Non-Tender, No Pedal Edema, Normal Capillary Refill Sepsis Event Note - Evaluation Sepsis Screening Result: No Definite Risk - Focused Exam Vital Signs: Vital Signs Temp Pulse Resp BP Pulse Ox 09/25/19 07:00 36.6 C 75 18 104/66 94 L 09/25/19 01:11 36.6 C 62 18 106/60 99 Date Exam was Performed: 09/25/19 Time Exam was Performed: 09:14 - Problem List Review Problem List Initiated/Reviewed/Updated: Yes - My Orders Last 24 Hours: My Active Orders 09/24/19 15:56 Patient Status [ADT] Routine Up With Assistance [RC] ASDIRECTED VTE/DVT Education [RC] PER UNIT ROUTINE Vital Signs [RC] 07,11,15,19,23,03 Acetaminophen [Tylenol] 650 mg PO Q4H PRN LORazepam [Ativan] 2 mg IVPUSH ONETIME PRN Resuscitation Status Routine 09/24/19 15:57 Cardiac Monitoring [RC] 08,20 Intake and Output [RC] QSHIFT 09/24/19 16:00 Sodium Chloride 0.9% [Normal Saline] 1,000 ml IV ASDIRECTED 06/22/20 16:10 LORazepam [Ativan] See Protocol IVPUSH TITRATE PRN 09/24/19 16:12 LORazepam [Ativan] See Protocol PO TITRATE PRN 09/24/19 Dinner Regular Diet [DIET] 09/24/19 22:00 Heparin Sodium 5,000 units SUBCUT Q8HR 09/25/19 09:00 Nicotine [Habitrol] 21 mg TRDERM DAILY 09/25/19 21:00 Check Patch 1 ea TRDERM BEDTIME - Plan Plan:: #. Seizure Likely alcohol related seizure Patient apparently had a seizure at home Has no prior history of seizures. No seizure since admission CT of the head negative Will monitor for another 24 hours #. Alcohol use disorder Monitor for withdrawals Benzodiazepines per [facility] protocol #. Anxiety disorder Lorazepam prn #. Substance use disorder Patient uses methamphetamine Urine toxicology screen is also positive for marijuana #. Liver disease Total bilirubin is elevated up to 2.1 Counseling
[2019-09-25] MEDS: Acetaminophen 325 MG Tab PO PRN ×3 (09:53→21:47)
[2019-09-25] MEDS: Nicotine 21 MG/24 Hr Patch TRDERM SCH (09:54)
[2019-09-25] MEDS ORDERED: CHECK TRDERM SCH (21:00)
[2019-09-26] MEDS: Sodium Chloride 0.9% 1,000 ML IV SCH (02:02)
[2019-09-26] MEDS: Heparin Sodium 5,000 Units/ML Vial SUBCUT SCH (06:13)
[2019-09-26 07:57] VITALS: BP 112/65; PULSE 66
[2019-09-26] MEDS: Acetaminophen 325 MG Tab PO PRN (08:04)
[2019-09-26] MEDS: Nicotine 21 MG/24 Hr Patch TRDERM SCH (08:04)
--- NOTE | 2019-09-26 09:48 | PCM.DCSUM1 ---
Discharge Summary - Hospital Course Free Text/Narrative:: Patient is a 29-year-old man with medical history of anxiety disorder and illicit drug use. The patient is a chronic alcoholic also. He presented to the emergency room via EMS because of seizure. He was admitted for alcohol withdrawal seizures. This is his first episode of alcohol related seizures. His stay was uncomplicated and did not had anymore surgery. He was discharged in stable condition. He was advised on the dangers of continue alcohol abuse and a dvised to quit. He verbalized understanding. He was also advised to follow up today at the [facility] after discharged. He agreed to go to the center to seek help. Diagnosis: Stroke: No - Discharge Data Discharge Date: 09/26/19 (Follow up at [facility] for chemical dependency treatment) Discharge Disposition: Home, Self-Care 01 Condition: Good - Referral to Home Health Primary Care Physician: PCP Unobtainable - Patient Instructions Activity: As Tolerated Showering/Bathing: August Shower Notify Provider of: Fever, Increased Pain, Swelling and Redness, Nausea and/or Vomiting - Discharge Plan *PRESCRIPTION DRUG MONITORING PROGRAM REVIEWED*: No *COPY OF PRESCRIPTION DRUG MONITORING REPORT IN PATIENT ARIANA: No Prescriptions/Med Rec: Folic Acid 1 mg PO BEDTIME #30 tab Thiamine [Vitamin B-1] 100 mg PO BEDTIME #30 tab Multivit #34/FA/Nadh/Ubiquinon [Xyzbac Tablet] 1 each PO DAILY 1 Days #30 tablet Home Medications: Home Meds Folic Acid 1 mg PO BEDTIME #30 tab 09/26/19 [Rx] Multivit #34/FA/Nadh/Ubiquinon [Xyzbac Tablet] 1 each PO DAILY 1 Days #30 tablet 09/26/19 [Rx] Thiamine [Vitamin B-1] 100 mg PO BEDTIME #30 tab 09/26/19 [Rx] Patient Handouts: Substance Use Disorder, Stimulant Use Disorder- Methamphetamines, Seizure, Adult, [id number], Alcohol Withdrawal Syndrome, [id number] [facility] - - Discharge Summary/Plan Comment DC Time >30 min.: Yes - General Info Date of Service: 09/26/19 Admission Dx/Problem (Free Text: Admission Diagnosis/Problem Admission Diagnosis/Problem Seizure disorder Subjective Update: Doing ok Functional Status: Reports: Pain Controlled - Review of Systems General: Reports: No Symptoms HEENT: Reports: No Symptoms Pulmonary: Reports: No Symptoms Cardiovascular: Reports: No Symptoms Gastrointestinal: Reports: No Symptoms Genitourinary: Reports: No Symptoms Musculoskeletal: Reports: No Symptoms Skin: Reports: No Symptoms Neurological: Reports: No Symptoms Psychiatric: Reports: No Symptoms - Patient Data Vitals - Most Recent: Last Vital Signs Temp 98.3 F 09/26/19 07:56 Pulse 66 09/26/19 07:56 Resp 18 09/26/19 07:56 BP 112/65 09/26/19 07:56 Pulse Ox 99 09/26/19 07:56 Weight - Most Recent: 162 lb 1.6 oz I&O - Last 24 hours: Intake & Output 09/25/19 09/26/19 09/26/19 22:59 06:59 14:59 Intake Total 1413 1002 240 Balance 1413 1002 240 Med Orders - Current: Current Medications Acetaminophen (Tylenol) 650 mg PO Q4H PRN PRN Reason: Pain (Mild 1-3)/fever Last Admin: 09/26/19 08:04 Dose: 650 mg Documented by: Heparin Sodium (Porcine) (Heparin Sodium) 5,000 units SUBCUT Q8HR [facility] Last Admin: 09/26/19 06:13 Dose: 5,000 units Documented by: Sodium Chloride (Normal Saline) 1,000 mls @ 125 mls/hr IV ASDIRECTED [facility] Last Admin: 09/26/19 02:02 Dose: 125 mls/hr Documented by: Lorazepam (Ativan) 2 mg IVPUSH ONETIME PRN PRN Reason: seizure Lorazepam (Ativan) 0 mg IVPUSH TITRATE PRN; Protocol PRN Reason: Withdrawal Symptoms Lorazepam (Ativan) 0 mg PO TITRATE PRN; Protocol PRN Reason: Withdrawal Symptoms Miscellaneous Information (Check Patch) 1 ea TRDERM BEDTIME [facility] Last Admin: 09/25/19 20:11 Dose: Not Given Documented by: Nicotine (Habitrol) 21 mg TRDERM DAILY [facility] Last Admin: 09/26/19 08:04 Dose: 21 mg Documented by: Discontinued Medications Multivitamins/Minerals 10 ml/Folic Acid 1 mg/ Thiamine HCl 100 mg/ Lactated Ringer's 1,011.2 mls @ 999 mls/hr IV ONETIME ONE Stop: 09/24/19 14:56 Last Admin: 09/24/19 14:13 Dose: 999 mls/hr Documented by: Lorazepam (Ativan) 1 mg IVPUSH ONETIME ONE Stop: 09/24/19 13:15 Last Admin: 09/24/19 13:35 Dose: 1 mg Documented by: - Exam Quality Assessment: Reports: DVT Prophylaxis General: Reports: Alert, Oriented HEENT: Reports: Pupils Equal, Pupils Reactive, EOMI, Mucous Membr. Moist/[place] Neck: Reports: Supple Lungs: Reports: Clear to Auscultation, Normal Respiratory Effort Cardiovascular: Reports: Regular Rate, Regular Rhythm GI/Abdominal Exam: Normal Bowel Sounds, Soft, Non-Tender, No Organomegaly, No Distention, No Abnormal Bruit, No Mass, Pelvis Stable (Male) Exam: No Hernia, Normal Inspection, Normal Prostate, Circumcised Rectal (Males) Exam: Normal Exam, Normal Rectal Tone, Prostate Normal Back Exam: Reports: Normal Inspection, Full Range of Motion Extremities: Normal Inspection, Normal Range of Motion, Non-Tender, No Pedal Edema, Normal Capillary Refill Skin: Reports: Warm, Dry, Intact Wound/Incisions: Reports: Healing Well Neurological: Reports: No New Focal Deficit Psy/Mental Status: Reports: Alert, Normal Affect, Normal Mood
== END 2019-09-26 11:05 | disposition home or self-care (01) | DRG 897 ==
LOC: DL.ED 13:21 → DL.MS 15:56
PROVIDERS: ADMIT Hospitalist; ATTEND Hospitalist
DX: F10.239 Alcohol dependence with withdrawal, unspecified (principal); R56.9 Unspecified convulsions; F41.9 Anxiety disorder, unspecified; F17.210 Nicotine dependence, cigarettes, uncomplicated; F15.90 Other stimulant use, unspecified, uncomplicated; K76.9 Liver disease, unspecified; Z79.899 Other long term (current) drug therapy
CPT/HCPCS: 36415; 70450; 80053; 80305-QW; 80307; 81001; 82550; 82553; 83735; 84100; 85025; 96365; 96375; 99285-25; A9270-GY; J1644; J2060; J3411; J3490; J7030; J7120

== ENCOUNTER 2022-02-17 20:30 | Emergency (ER) | payer SELFPAY | END 2022-02-17 20:40 | disposition left against medical advice (07) | LOC: DL.ED 20:30 | DX: Z53.21 Procedure and treatment not carried out due to patient leaving prior to being seen by health care provider (principal) ==